=== PATIENT | female | born 1930 | race Two or more races ===

== ENCOUNTER 2017-12-05 22:52 | Emergency (ER) | payer MEDICARE, MEDICAID ==
[~2017-12-05] VITALS: Ht 149.9 cm; Wt 49.9 kg
[2017-12-05] MEDS ORDERED: NEXIUM (23:14)
[2017-12-05] MEDS ORDERED: HYDROCHLOROTHIAZIDE (23:14)
[2017-12-05] MEDS ORDERED: AMLODIPINE (23:14)
[2017-12-05] MEDS ORDERED: XANAX (23:14)
[2017-12-05] MEDS ORDERED: DIOVAN (23:14)
[2017-12-05] MEDS ORDERED: PLAVIX (23:14)
[2017-12-05] MEDS ORDERED: METOPROLOL (23:14)
[2017-12-05] MEDS ORDERED: IV NORMAL SALINE 500 ML BAG IV ONE (23:15)
[2017-12-05 23:26] LABS: BASOPHILS % (AUTO) 0.5 % (0.0-2.0); EOSINOPHILS # (AUTO) 0.1 K/uL (0.0-0.7); EOSINOPHILS % (AUTO) 1.6 % (0.0-7.0); HEMATOCRIT 40.4 % (31.2-41.9); HEMOGLOBIN 13.4 g/dL (10.9-14.3); LYMPHOCYTES # (AUTO) 3.6 K/uL (20.0-40.0); LYMPHOCYTES % (AUTO) 47.3 % (20.5-51.5); MEAN CORPUSCULAR HGB CONC 33 g/dL (32.3-35.6); MEAN CORPUSCULAR VOLUME 84.6 fL (75.5-95.3); MONOCYTES # (AUTO) 0.8 K/uL (2.0-10.0); MONOCYTES % (AUTO) 10.6 % (0.0-11.0); PLATELET COUNT (AUTO) 173 K/uL (179-408); RED BLOOD CELL COUNT(AUTO) 4.77 MIL/uL (3.63-4.92); WHITE BLOOD COUNT (AUTO) 7.6 K/uL (3.8-11.8)
[2017-12-05] MEDS ORDERED: CLOP75TA33 PO (23:27)
[2017-12-05] MEDS ORDERED: AMLO2.5T PO (23:27)
[2017-12-05] MEDS ORDERED: VALS80TA2 PO (23:27)
[2017-12-05] MEDS ORDERED: ESOM20CA PO (23:27)
[2017-12-05] MEDS ORDERED: ALPR0.255 PO (23:27)
[2017-12-05] MEDS ORDERED: LINA290C PO (23:27)
[2017-12-05] MEDS ORDERED: HYDR25TA4 PO (23:27)
[2017-12-05] MEDS ORDERED: METO-357 PO (23:27)
[2017-12-05 23:55] LABS: ALANINE AMINOTRANSFERASE 23 U/L (14-59); ALKALINE PHOSPHATASE 73 U/L (50-136); ASPARTATE AMINOTRANSFERASE 30 U/L (15-37); BILIRUBIN,DIRECT 0.1 mg/dL (0.0-0.2); BILIRUBIN,TOTAL 0.4 mg/dL (0.2-1.0); CARBON DIOXIDE 28 mmol/L (21-32); CHLORIDE 95 mmol/L (98-107); CREATININE 0.8 mg/dL (0.6-1.3); GLUCOSE 102 mg/dL (74-106); POTASSIUM 3.5 mmol/L (3.5-5.1); TOTAL PROTEIN, SERUM 8.4 g/dL (6.4-8.2); UREA NITROGEN, BLOOD 16 mg/dL (7-18)
[2017-12-06 00:04] LABS: ACETAMINOPHEN < 2.0 ug/mL (10-30)
[2017-12-06 00:05] LABS: ETHANOL < 3 MG/DL (0-0)
[2017-12-06 01:28] VITALS: BP 135/78
== END 2017-12-06 01:29 | disposition other institution (70) ==
LOC: ER 22:53
DX: Z00.00 Encounter for general adult medical examination without abnormal findings (principal); R41.82 Altered mental status, unspecified
CPT/HCPCS: 36415; 70030-TC; 70450; 71045; 83605; 85025; 85730; 87040; 93005; A4663; G0480; G0480-TC; J7040